=== PATIENT | male | born 1980 | race Caucasian/White ===

== ENCOUNTER 2018-04-24 06:51 | Emergency (ER) | payer SELFPAY ==
[2018-04-24 07:23] VITALS: TEMP 97.3; O2SAT 97
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
[2018-04-24 08:16] VITALS: BP 113/83
== END 2018-04-24 08:17 | disposition home or self-care (01) ==
LOC: ER 06:51
DX: Z43.1 Encounter for attention to gastrostomy (principal); Z87.820 Personal history of traumatic brain injury

== ENCOUNTER → 2019-10-27 | Outpatient (CLI) | payer OTHER | LOC: LAB.O 11:46 | PROVIDERS: ATTEND Nurse Practitioner Family | DX: R39.12 Poor urinary stream (principal) ==